=== PATIENT | male | born 1965 | race Caucasian/White ===

== ENCOUNTER 2024-05-30 11:35 | Emergency (ER) | payer MEDICAID, SELFPAY ==
[2024-05-30 12:23] VITALS: BP 153/93; PULSE 69; RESP 18; TEMP 36.7; O2SAT 97; BMI 20.8
--- NOTE | 2024-05-30 12:33 | ED_ITS ---
HPI - General Adult General Chief complaint: Wound/Laceration Stated complaint: Wrist lac Time Seen by Provider: 05/30/24 16:06 Related Data Allergies Allergy/AdvReac Type Severity Reaction Status Date / Time No Known Allergies Allergy Mild NONE Verified 05/30/24 12:26 [facility] Social History Social History Advance Directives: No Advance Directives Information Provided: No Physical Exam ED Vital Signs: Vital Signs - 24 hr 05/30/24 12:23 Temperature 98.1 F Pulse Rate 69 Respiratory Rate 18 Blood Pressure 153/93 H Pulse Oximetry 97 Oxygen Delivery Method Room Air BMI result Body Mass Index 20.8 Course Course Course Narrative: RME: Done by SHELL Reese. 58-year-old male cut left wrist with box toe flanger stitchdowns while at work. Patient's last tetanus shot 6 years ago. Patient has complete range of motion of wrists and hands. No active bleeding. Negative for signs of nerve damage. Laceration is linear. Reevaluation(s) Reevaluation #1: went to go evaluate [place] [facility] [place] prior to treatment Time: 16:17 Discharge Plan Discharge Clinical Impression: Laceration Patient Disposition: Left W/O Completing Treatment Discharge Date/Time: 05/30/24 16:30
--- NOTE | 2024-05-30 16:26 | PC.NURSE ---
pt was called by [facility] tech twice, tech walked through the waiting room yelling for pt who was not found.
== END 2024-05-30 16:30 | disposition left against medical advice (07) ==
LOC: HO.ED 16:26
PROVIDERS: Emergency Provider Emergency Medicine; PCP Family Medicine
DX: S61.512A Laceration without foreign body of left wrist, initial encounter (principal); W26.0XXA Contact with knife, initial encounter; Y93.89 Activity, other specified; Y92.89 Other specified places as the place of occurrence of the external cause; Y99.0 Civilian activity done for income or pay
CPT/HCPCS: 99281